=== PATIENT | female | born 1980 | race Two or more races ===

== ENCOUNTER 2025-06-12 17:48 | Emergency (ER) | payer OTHER, MEDICAID ==
[2025-06-12 17:48] VITALS: BP 119/83; RESP 18; TEMP 98.1; O2SAT 100
[~2025-06-12 17:48] MED LIST: PREN-129 OR
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
[2025-06-12 18:47] VITALS: PULSE 83
--- NOTE | 2025-06-12 18:48 | DVH ---
EXAM: XY CHEST PORTABLE HISTORY: cp TECHNIQUE: 1 view of the chest COMPARISON: None FINDINGS/IMPRESSION: LUNGS: No pleural effusion, consolidation, or pneumothorax MEDIASTINUM: Unremarkable BONES: No acute osseous abnormality . Thoracolumbar fusion. OTHER: None
[2025-06-12 18:54] LABS: Hematocrit 38.7 % (36.0-46.0); Hemoglobin 13.2 g/dL (12.2-16.2); Mean Corpuscular Hemoglobin 30.0 pg (28.0-32.0); Mean Corpuscular Volume 87.7 fL (80.0-100.0); Nucleated Red Blood Cells % 0.0 %
[2025-06-12 18:56] LABS: Chloride 106 mmol/L (98-107); Potassium 3.6 mmol/L (3.5-5.1); Sodium 141 mmol/L (136-145)
[2025-06-12 18:57] LABS: Anion Gap 8 (5-15); Calcium 8.8 mg/dL (8.7-10.4); Carbon Dioxide 27 mmol/L (20-31)
[2025-06-12 19:02] LABS: BUN/Creatinine Ratio 34.9 (10.0-20.0); Blood Urea Nitrogen 15 mg/dL (9-23); Glucose 90 mg/dL (74-106)
--- NOTE | 2025-06-12 19:46 | DVH ---
LEFT LOWER EXTREMITY VENOUS DOPPLER ULTRASOUND CLINICAL HISTORY: pain TECHNIQUE: Grayscale ultrasound with compression, color Doppler flow imaging with pulsed duplex sonog yunior of the left lower extremity deep venous system from the common femoral veins through the poplit eal veins is performed. COMPARISON: None FINDINGS: Left common femoral vein: Negative. Left greater saphenous vein: Negative. Left deep femoral vein: Negative. Left femoral vein: Negative. Left popliteal vein: Negative. Other: Visualized popliteal trifurcation and posterior tibial vein demonstrate color flow. IMPRESSION: No sonographic evidence of deep venous thrombosis in the left lower extremity at this time.
--- NOTE | 2025-06-13 09:34 | ECG ---
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
--- NOTE | 2025-06-14 10:55 | ECG ---
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
== END 2025-06-12 21:46 | disposition home or self-care (01) ==
LOC: ER 17:48
DX: R07.89 Other chest pain (principal); F41.9 Anxiety disorder, unspecified; I10 Essential (primary) hypertension; Z98.890 Other specified postprocedural states; Z87.440 Personal history of urinary (tract) infections; Z88.5 Allergy status to narcotic agent
CPT/HCPCS: 36415; 71045; 80048; 83880; 84484; 85025; 93005; 93971